=== PATIENT | female | born 1995 | race Caucasian/White ===

== ENCOUNTER 2022-07-19 16:33 | Emergency (ER) | payer OTHER, SELFPAY ==
[2022-07-19 16:48] VITALS: BP 136/74; PULSE 101; RESP 16; TEMP 37.7; O2SAT 100
--- NOTE | 2022-07-19 17:04 | ED.SKABFB ---
HPI - Skin/Abscess/Foreign Bdy General Chief complaint: Skin/Abscess/Foreign Body Stated complaint: Insect Bite Time Seen by Provider: 07/19/22 16:50 Source: patient Mode of arrival: ambulatory Limitations: no limitations History of Present Illness HPI narrative: Germaine is a 27-year-old female patient presenting to the clinic today with complaints of a full-body rash and a possible insect bite to the left lower leg. She denies any itching with the rash however the leg is painful. Appears that she has a bruise to the left lateral leg with redness and inflammation surrounding the area. She reports she was out drinking last night and became drunk and does not recall injuring herself. She denies any changes in environment such as lotions, detergents, soaps, shampoos, drinks, or food. Related Data Home Medications Medication Instructions Recorded Confirmed norethindrone-e.estradiol 1 tablet PO DAILY 07/19/22 07/19/22 triphasic 0.5 mg/0.75 mg/1 mg-35 mcg tablet (Nylia (28)) pantoprazole 1 tab-cap PO DAILY 07/19/22 07/19/22 Allergies Allergy/AdvReac Type Severity Reaction Status Date / Time sulfamethoxazole AdvReac Gastrointestinal Verified 07/19/22 17:24 [From Bactrim] Upset trimethoprim [From Bactrim] AdvReac Gastrointestinal Verified 07/19/22 17:24 Upset Review of Systems Review of Systems: Pertinent positives per HPI. Patient denies any fever, chills, rash, headache, visual changes, dizziness, cough, runny nose, sore throat, shortness of breath, chest pain, palpitations, nausea, vomiting, diarrhea, constipation, abdominal pain, or any urinary issues. PMFSH Comments At the time of my signature, I reviewed and agree with the nursing past medical, surgical, social, and family history. There is no relevant family history pertinent to the patient complaint. Exam Narrative: General: Well-developed, well nourished, in no apparent distress Head: Normocephalic, atraumatic. Cardio: Regular rate and rhythm, s1 and s2 normal, no murmur appreciated. Resp: Clear to auscultation bilaterally, no rhonchi, rales, wheezing or rubs. Integumentary: [place], warm, and dry, intact without lesion, red nonraised, non itchy, nonpainful, rash on legs, trunk, chest, and face. Approximately 2 cm length bruise to the left lateral lower extremity with swelling and erythema, tender to palpation with localized redness surrounding bruise with possible insect bite Course Course Emergency Course: Portions of this record may have been created with voice recognition software. Level of Care: Express Care Visit Vital Signs Vital signs: Vital Signs Temperature 37.7 C H 07/19/22 16:48 Pulse Rate 101 H 07/19/22 16:48 Respiratory Rate 16 07/19/22 16:48 Blood Pressure 136/74 07/19/22 16:48 Pulse Oximetry 100 07/19/22 16:48 Oxygen Delivery Room Air 07/19/22 16:48 Temperature 37.7 C H 07/19/22 16:48 Pulse Rate 101 H 07/19/22 16:48 Respiratory Rate 16 07/19/22 16:48 Blood Pressure 136/74 07/19/22 16:48 Pulse Oximetry 100 07/19/22 16:48 Oxygen Delivery Room Air 07/19/22 16:48 Vital signs reviewed MDM - Skin/Abscess/Foreign Bdy MDM Narrative Medical decision making narrative: At the time of visit patient is resting comfortably on the exam table. Strep screen was negative in the clinic today however I will send in prescription for prednisone and cephalexin as she does seem to have some cellulitis to the left lower extremity but I cannot rule out an allergic component. Supportive measures were discussed with the parent and the patient and they voiced understanding of discharge instructions and agrees to treatment plan. Differential Diagnosis Differential diagnosis: Likely abscess of skin or subcutaneous tissue, cellulitis, insect bites, contact dermatitis and other (Necrotizing fasciitis) Lab Data Labs: Strep Screen Presumptive Negative *(Ref
== END 2022-07-19 17:32 | disposition home or self-care (01) ==
PROVIDERS: Emergency Provider Nurse Practitioner Family; PCP Family Medicine
DX: R21 Rash and other nonspecific skin eruption (principal); L03.116 Cellulitis of left lower limb; S80.12XA Contusion of left lower leg, initial encounter; X58.XXXA Exposure to other specified factors, initial encounter
CPT/HCPCS: 87081; 87880; 99203; G0463